=== PATIENT | male | born 1980 | race Caucasian/White ===

== ENCOUNTER → 2016-10-27 | Outpatient (CLI) | payer BC ==
[~2016-10-27] MED LIST: DOXY-182 PO
--- NOTE | 2016-10-27 12:29 | Diagnostic Imaging Report ---
PROCEDURE: US abdomen complete. TECHNIQUE: Multiple real-time grayscale images were obtained over the abdomen in various projections. INDICATION: Acute left lower quadrant pain. FINDINGS: The liver appears normal. Bile ducts are not dilated. Common bile duct measures 3.5 mm. Gallbladder shows no evidence of gallstones. There is no gallbladder wall thickening. Pancreas appears normal. The right kidney measures 11.2 x 3.6 x 5.5 cm. Renal cortex appears normal. No hydronephrosis. There are few acoustical shadowing densities in the midportion of the right kidney along the cortex which likely represents parenchymal calcification. Left kidney measures 11.2 x 4.5 x 5.3 cm and appears normal. The spleen is normal. The aorta and vena cava are visualized and appear normal. The aorta measures 1.6 cm in greatest dimension. There is no ascites. IMPRESSION: 1. No acute intra-abdominal abnormalities. 2. There are a few small acoustical shadowing calcifications noted in right kidney which are nonobstructive in nature. Dictated by: Dictated on workstation # [id number]
== END ==
LOC: RAD 10:54
PROVIDERS: ATTEND Family Medicine
DX: R10.32 Left lower quadrant pain (principal)
CPT/HCPCS: 76700